=== PATIENT | female | born 1965 | race Hispanic/Latino ===

== ENCOUNTER 2018-11-03 21:15 | Emergency (ER) | payer OTHER ==
[~2018-11-03] VITALS: Ht 158 cm; Wt 77.0 kg
[2018-11-03] MEDS ORDERED: DOXYCYCL HYC100 MG PO (22:23)
[2018-11-03 23:38] VITALS: BP 106/48
== END 2018-11-03 23:38 | disposition home or self-care (01) | DRG 603 ==
LOC: ED 21:15
DX: L03.113 Cellulitis of right upper limb (principal); R22.31 Localized swelling, mass and lump, right upper limb; Y84.8 Other medical procedures as the cause of abnormal reaction of the patient, or of later complication, without mention of misadventure at the time of the procedure; Y92.238 Other place in hospital as the place of occurrence of the external cause

== ENCOUNTER 2022-01-30 08:57 | Day surgery (SDC) | payer MEDICAID ==
[~2022-01-30] VITALS: Ht 160 cm; Wt 68.0 kg
[~2022-01-30 08:57] MED LIST: DOXYCYCL HYC100 MG PO; GLIPIZIDE10 M2 PO; LIPITOR40 M1 PO; LISINOPRIL20 M1 PO; METFORMIN500 M2 PO
[2022-01-30 11:54] VITALS: BP 123/69
== END 2022-01-30 11:43 | disposition home or self-care (01) ==
LOC: ENDO 08:57
PROVIDERS: ATTEND Surgery
DX: Z12.11 Encounter for screening for malignant neoplasm of colon (principal); K64.8 Other hemorrhoids; I10 Essential (primary) hypertension; E11.9 Type 2 diabetes mellitus without complications; Z79.84 Long term (current) use of oral hypoglycemic drugs